=== PATIENT | male | born 1965 | race Two or more races ===

== ENCOUNTER 2021-04-02 21:09 | Emergency (ER) | payer SELFPAY ==
[~2021-04-02] VITALS: Ht 188 cm; Wt 83.9 kg
[2021-04-02 21:09] VITALS: BP 139/108
== END 2021-04-02 23:45 | disposition left against medical advice (07) ==
LOC: ER 21:12
DX: M25.511 Pain in right shoulder (principal); M54.2 Cervicalgia; Z53.21 Procedure and treatment not carried out due to patient leaving prior to being seen by health care provider; V43.52XA Car driver injured in collision with other type car in traffic accident, initial encounter; Y93.89 Activity, other specified; Y92.410 Unspecified street and highway as the place of occurrence of the external cause; Y99.8 Other external cause status

== ENCOUNTER 2021-04-04 22:46 | Emergency (ER) | payer OTHER ==
[~2021-04-04] VITALS: Ht 188 cm; Wt 88.5 kg
[2021-04-04 22:55] VITALS: BP 172/109
== END 2021-04-05 02:30 | disposition left against medical advice (07) ==
LOC: ER 22:47
DX: R51.9 Headache, unspecified (principal); M54.2 Cervicalgia; M25.511 Pain in right shoulder; Z53.21 Procedure and treatment not carried out due to patient leaving prior to being seen by health care provider
CPT/HCPCS: 70450; 72125; 73020

== ENCOUNTER 2023-09-11 15:58 | Emergency (ER) | payer MEDICAID, OTHER ==
[~2023-09-11] VITALS: Ht 188 cm; Wt 104.2 kg
[2023-09-11] MEDS: ONDANSETRON ODT 4 MG TAB PO ONE (17:10)
[2023-09-11] MEDS: cloNIDine HCL 0.1 MG TAB PO ONE (17:11)
[2023-09-11] MEDS: ACETAMINOPHEN 500 MG TAB PO ONE (17:12)
[2023-09-11 17:16] LABS: Basophils # (auto) 0.1 10 ^3/uL (0-0.2); Basophils % (auto) 0.5 % (0.0-2.0); Eosinophils # (auto) 0 10 ^3/uL (0-0.8); Eosinophils % (auto) 0.3 % (0.0-7.0); Hematocrit 46.5 % (41.0-53.0); Hemoglobin 15.8 g/dL (13.5-17.5); Lymphocytes # (auto) 0.8 10 ^3/uL (0.4-5.4); Lymphocytes % (auto) 7.5 % (10.0-50.0); Mean Corpuscular Hemoglobin 29.6 pg (28.0-32.0); Monocytes # (auto) 1.1 10 ^3/uL (0-1.3); Monocytes % (auto) 10.3 % (0.0-12.0); Neutrophils # (auto) 8.8 10 ^3/uL (1.6-8.6); Neutrophils % (auto) 81.4 % (37.0-80.0); Nucleated Red Blood Cells % 0.1 %; Red Blood Cells 5.35 10^6/uL (4.5-5.90); Red Cell Distribution Width 13.4 % (11.8-14.3); White Blood Cell 10.8 10^3/uL (4.4-10.8)
[2023-09-11 17:28] LABS: Anion Gap 8 (5-15); Carbon Dioxide 27 mmol/L (20-30); Chloride 101 mmol/L (98-107); Potassium 3.6 mmol/L (3.5-5.1); Sodium 136 mmol/L (136-145)
[2023-09-11 17:29] LABS: Calcium 9.4 mg/dL (8.7-10.4)
[2023-09-11 17:34] LABS: BUN/Creatinine Ratio 10.6 (10.0-20.0); Blood Urea Nitrogen 10 mg/dL (9-23); Glucose 105 mg/dL (74-106); Lipase 31 U/L (12-53)
[2023-09-11 21:26] VITALS: BP 139/94; PULSE 84; RESP 18; O2SAT 93
== END 2023-09-12 00:29 | disposition left against medical advice (07) ==
LOC: ER 15:58
DX: M79.10 Myalgia, unspecified site (principal); R53.1 Weakness
CPT/HCPCS: 36415; 80048; 83690; 84484; 85025; 99284; Q0162